=== PATIENT | male | born 1980 | race Caucasian/White ===

== ENCOUNTER 2020-01-07 10:41 | Emergency (ER) | payer SELFPAY ==
[~2020-01-07] VITALS: Ht 172.7 cm; Wt 108.9 kg
--- NOTE | 2020-01-07 12:22 | NUR ---
PT. IS A & O X 4 WITH A GCS OF 15. PT. HAS C/O A LEFT LOWER LEG WOUND X 1 YEAR. PT.'S WOUND IS 2 CM X 1 CM. NO BLEEDING OR DRAINAGE NOTED. CMS CHECKS ARE INTACT WITH PULSES +2 THROUGHOUT. PT. WOUND WAS CLEANSED AND DRESSED. PULSES REMAIN +2 WITH CAP REFILL LESS THAN 3 SECONDS AFTER TREATMENT. PT.'S AFN=[id number]. PT. IS RESTING WITHOUT CONCERNS. VSS.
--- NOTE | 2020-01-07 12:38 | NUR ---
Patient/Caregiver given discharge instructions and they have confirmed that they understand the instructions. Patient ambulatory with steady gait.
[2020-01-07 12:39] VITALS: BP 145/72
== END 2020-01-07 12:41 | disposition home or self-care (01) ==
LOC: ED 11:32
DX: I83.892 Varicose veins of left lower extremity with other complications (principal)
CPT/HCPCS: 82962; 99282